=== PATIENT | male | born 1985 | race Caucasian/White ===

== ENCOUNTER 2024-06-14 13:06 | Emergency (ER) | payer OTHER, SELFPAY ==
[2024-06-14 13:13] VITALS: BP 121/88; PULSE 82; RESP 20; TEMP 36.9; O2SAT 98
--- NOTE | 2024-06-14 13:45 | DI.CT_ITS ---
Exam(s) CT ABDOMEN PELVIS W EXAM: CT ABDOMEN PELVIS W CLINICAL HISTORY: Rectal bleeding, lower abd pain. TECHNIQUE: Imaging Protocol: Axial computed tomography images with coronal and sagittal reformatted images were created and reviewed CONTRAST MATERIAL: Intravenous: Omnipaque 350 Contrast volume:100 ml Oral: no COMPARISON: No exams were available for comparison FINDINGS: ABDOMEN and PELVIS: Lung Bases: No acute findings. Liver: Normal density. No suspicious mass. Gallbladder and biliary tract: No radiodense calculus. No wall thickening or pericholecystic fluid. No biliary dilation. Pancreas: Normal density. No abnormal calcifications or inflammatory process. No evidence of mass. Spleen: Normal. Kidneys: Normal size and axis. Small area of decreased perfusion at the lower pole of the left kidne y could represent a small area of scarring versus focal pyelonephritis. No urothelial enhancement. The right kidney is unremarkable. No radiodense stones. No obstructive uropathy. No suspicious bharath s seen. Adrenal glands: No masses seen. Vasculature: Abdominal aorta non-dilated. No atherosclerotic changes are visible. Branch vessels ar e widely patent. Soft tissues: Tiny left fat containing umbilical hernia. No perirectal abscess is visible. Bladder: No gross wall thickening. No calculi.No focal mass. Bowel: No obstruction. No bowel wall thickening. Appendix normal. Mild sigmoid diverticulosis. No rmal quantity of stool. Peritoneal cavity: No ascites. No focal collection. No mesenteric inflammatory response. No free air . Bones: Unremarkable for age. Reproductive organs: Unremarkable. Lymph nodes: No pathologically enlarged lymph nodes. IMPRESSION:: No acute abnormality in the abdomen or pelvis. Mild sigmoid diverticulosis. Of focal area of decreased perfusion lower pole left kidney could could represent area of scarring versus foca l pyelonephritis. RADIATION DOSE DELIVERED: Total DLP DATA REPOSITORY: All CT scans at this facility are submitted to the National Radiology Data Registry (NRDR) Dose Index Registry (DIR) with the [employer] (ACR). RADIATION OPTIMIZATION: All CT scans at this facility use at least one of these dose optimization te chniques: automated exposure control; mA and/or kV adjustment per patient size (includes targeted exa ms where dose is matched to clinical indication); or iterative reconstruction.
--- NOTE | 2024-06-14 14:00 | ED.GENADUL_ITS ---
Discharge Plan Disposition Patient Disposition: Home Condition: Stable Discharge Details Clinical Impression: Rectal bleeding, Abdominal pain Primary Care Provider: None,None ED Provider: Akanksha Rodriguez Home Meds and New Rx's Prescriptions: No Action ibuprofen 800 mg tablet 800 mg PO Q8H PRN levofloxacin 500 mg tablet 500 mg PO DAILY losartan 50 mg tablet 50 mg PO DAILY simvastatin 20 mg tablet 20 mg PO DAILY Discharge Instructions Instructions: Abdominal Pain, Adult ED, Bloody Stools, Adult ED Additional Instructions: Please collect the stool sample as discussed and bring it into the lab at your convenience. Keep your appointment with urology as previously scheduled. No evidence of urinary tract infection you did have a small amount of blood in your urine. Labs are largely within normal limits your lipase was slightly elevated this could be due to the gallbladder. Referrals: Primary Care Provider [Outside] HPI General Mode of arrival: ambulatory . Date/Time Provider Initiated Documentation: 06/14/24 13:40 . Limitations to Documentation: no limitations . Information obtained by: patient, family, RN notes reviewed and old records reviewed . HPI Narrative: 39-year-old male with a history of prostatitis currently on antibiotics presents to the ER with chief complaint of lower abdominal pain with rectal bleeding which she noticed red blood in his stool this morning also noted blood with wiping. Denies any past medical history of hemorrhoids. He has been being worked up with his primary care for the prostatitis and is referred to urology he does have an appointment on July 06 at [facility] urology. He denies having any history of abdominal surgeries. He does have a history of hypertriglyceridemia, hypertension, prostatitis. He does endorse alcohol use 1- 2 times a week. Denies any consistent use of Tylenol or ibuprofen. He does not take any antacid just occasional Tums. Denies any vomiting however he does endorse nausea. He reports lower abdominal pain which radiation up into his left lower quadrant. Related Data Home Medications ?Medication ?Instructions ?Recorded ?Confirmed ibuprofen 800 mg tablet 800 mg PO Q8H PRN 06/08/24 levofloxacin 500 mg tablet 500 mg PO DAILY 06/08/24 losartan 50 mg tablet 50 mg PO DAILY 06/08/24 simvastatin 20 mg tablet 20 mg PO DAILY 06/08/24 Allergies Allergy/AdvReac Type Severity Reaction Status Date / Time No Known Allergies Allergy Verified 06/08/24 15:46 General Stated Complaint: Abd Prob LINDA: 3 Review of Systems All systems reviewed & are unremarkable except as noted in HPI and below Gastrointestinal Gastrointestinal: Reports abdominal pain, Reports hematochezia (Reports streaks of blood) and Reports nausea Course Vital Signs Vital signs: Vital Signs Temperature 36.9 C 06/14/24 13:13 Pulse 82 06/14/24 13:13 Respiratory Rate 20 06/14/24 13:13 Blood Pressure 121/88 06/14/24 13:13 Pulse Oximetry 98 06/14/24 13:13 Temperature 36.9 C 06/14/24 13:13 Temperature Source Temporal Artery Scan 06/14/24 13:13 Pulse 82 06/14/24 13:13 Respiratory Rate 20 06/14/24 13:13 Blood Pressure 121/88 06/14/24 13:13 Pulse Oximetry 98 06/14/24 13:13 Oxygen Delivery Method Room Air 06/14/24 13:13 Oxygen Flow Rate 0 06/14/24 13:13 Pain Level 5 06/14/24 13:37 Comment Lower Abd pain, burning on left side and some back pain. Has not taken anything for pain today. 06/14/24 13:13 Medical Decision Making 39-year-old male with a history of prostatitis currently on antibiotics presents to the ER with chief complaint of lower abdominal pain with rectal bleeding which she noticed red blood in his stool this morning also noted blood with wiping. Denies any past medical history of hemorrhoids. He has been being worked up with his primary care for the prostatitis and is referred to urology he does have an appointment on July 06 at [facility] urology. He denies having any history of abdominal surgeries. He does have a history of hypertriglyceridemia, hypertension, prostatitis. He does endorse alcohol use 1- 2 times a week. Denies any consistent use of Tylenol or ibuprofen. He does not take any antacid just occasional Tums. Denies any vomiting however he does endorse nausea. He reports lower abdominal pain which radiation up into his left lower quadrant. Will do some screening labs, give Pepcid 20 mg IV, 4mg IV Zofran, CT abdomen pelvis with contrast. Urinalysis. I did mention getting stool studies which would be beneficial, and also will consider discharging with a antacid. Differential diagnose includes amounted to colitis, hemorrhoids, adverse reaction from the recent antibiotics. Gastroenteritis. POCUS exam done at bedside FAST exam performed no free fluid noted does have somewhat dilated gallbladder, prostate somewhat enlarged. Negative fast. CBC shows no leukocytosis hemoglobin hematocrit within normal limits, CMP within normal limits, lipase is elevated at 122. Urinalysis shows small blood no leukocytes no nitrites 5-10 RBCs. At this time awaiting CT abdomen pelvis. Care is to be handed off to oncoming provider gibson TAMAYO pending CT abdomen pelvis. Recommend outpatient stool studies. Most likely disposition discharge at this time. Will Medical Records Medical records reviewed: Yes I reviewed the patient's medical records. Lab Data Lab results reviewed: Yes I reviewed the patient's lab results. Labs: Laboratory Tests Range/Units 06/14/24 06/14/24 13:28 14:25 WBC (4.4-10.8) 10^3/uL 6.50 RBC (4.36-5.78) 10^6/uL 5.38 Hgb (13.5-17.5) g/dL 15.8 Hct (40.0-50.0) % 46.5 MCV (80-95) fL 86 MCH (27.0-33.0) pg 29.4 MCHC (32.0-36.0) % 34.0 RDW (11.8-14.1) % 12.0 Plt Count (130-400) 10^3/uL 386 MPV (8.0-11.0) fL 9.1 Immature Gran % % 0.2 Neutrophils % % 62.0 Lymphocytes % % 26.6 Monocytes % % 8.6 Eosinophils % % 2.0 Basophils % % 0.6 Nucleated RBC % (0.0-0.3) % 0.0 Absolute Neutrophils (1.2-6.7) 10^3/uL 4.03 Absolute Lymphocytes (1.2-3.4) 10^3/uL 1.73 Absolute Monocytes (0.1-0.8) 10^3/uL 0.56 Absolute Eosinophils (0.0-0.7) 10^3/uL 0.13 Absolute Basophils (0.0-0.2) 10^3/uL 0.04 Sodium (136-145) mmol/L 140 Potassium (3.5-5.1) mmol/L 4.0 Chloride (98-107) mmol/L 102 Carbon Dioxide (21.0-32.0) mmol/L 31.9 Anion Gap (3-11) mmol/L 6.1 BUN (7-18) mg/dL 11 Creatinine (0.70-1.30) mg/dL 0.9 Est GFR (CKD-EPI 2020) (mL/min/1.73m2) 110.04 Glucose (74-106) mg/dL 94 Calcium (8.5-10.1) mg/dL 9.7 Magnesium (1.8-2.4) mg/dL 1.9 Total Bilirubin (0.2-1.0) mg/dL 0.86 AST (15-37) U/L 29 ALT (16-63) U/L 61 Alkaline Phosphatase (46-116) U/L 68 Total Protein (6.4-8.2) g/dL 8.2 Albumin (3.4-5.0) g/dL 4.6 Lipase (<78) U/L 122 H Urine Color (Yellow) Yellow Urine Clarity (Clear) Clear Urine pH (5-8) 6.0 Ur Specific [place] (1.005-1.025) 1.010 Urine Protein (Neg-Trace) mg/dL Negative Urine Ketones (Negative) mg/dL Negative Urine Blood (Negative) Small H Urine Nitrite (Negative) Negative Urine Bilirubin (Negative) Negative Urine Urobilinogen (Up to 0.2) mg/dL 0.2 Ur Leukocyte Esterase (Negative) Negative Urine RBC (0-2) HPF 5-10 H Urine WBC (0-5) HPF 0-2 Ur Epithelial Cells (Negative) HPF Rare Urine Crystals (Negative) HPF Negative Urine Bacteria (Negative) HPF Rare Urine Casts (Negative) LPF Negative Urine Mucus (Negative) Negative Ur Culture Indicated? No Urine Glucose (Negative) mg/dL Negative Quality:SDOH Health Related Social Needs: No Data to Display PFSH All Active Problems (Updated 06/14/24 @ 15:17 by Akanksha Rodriguez NP) Abdominal pain (Acute) Rectal bleeding (Acute) Medical History Low back pain Hypertriglyceridemia HTN (hypertension) ETOH abuse Enlarged prostate Abdominal pain Prostatitis Social History Smoking/Tobacco Use Status: Current, status unknown Tobacco Type: smokeless tobacco Smoking risk assessment performed?: Yes Alcohol Intake: current Alcohol Intake frequency: a few times a week Alcohol type: beer
[2024-06-14] MEDS: FAMOTIDINE 20 MG/50 ML BAG 200 MG IV (14:18)
[2024-06-14] MEDS: Ondansetron 4 MG/2 ML VIAL IVP (14:19)
[2024-06-14 14:20] LABS: Bilirubin Negative (Negative); Blood Small (Negative); Clarity Clear (Clear); Glucose Negative (Negative); Ketones Negative (Negative); Leukocyte Esterase Negative (Negative); Nitrite Negative (Negative); Urobilinogen 0.2 mg/dL (Up to 0.2)
[2024-06-14 14:28] LABS: Bacteria Rare HPF (Negative); Crystals Negative HPF (Negative); Epithelial Cells Rare HPF (Negative); Mucus Negative (Negative); WBC 0-2 HPF (0-5)
[2024-06-14 14:29] LABS: C & S Indicated? No; Casts Negative LPF (Negative)
[2024-06-14 14:31] LABS: Abs Immature Grans 0.01 10^3/uL (0.0-0.06); Absolute Basophil Count 0.04 10^3/uL (0.0-0.2); Absolute Eosinophil Count 0.13 10^3/uL (0.0-0.7); Absolute Lymphocyte Count 1.73 10^3/uL (1.2-3.4); Absolute Monocyte Count 0.56 10^3/uL (0.1-0.8); Absolute Neutrophil Count 4.03 10^3/uL (1.2-6.7); Basophils % 0.6 %; HCT 46.5 % (40.0-50.0); HGB 15.8 g/dL (13.5-17.5); Immature Grans % 0.2 %; Lymphocytes % 26.6 %; MCH 29.4 pg (27.0-33.0); MCV 86 fL (80-95); MPV 9.1 fL (8.0-11.0); Monocytes % 8.6 %; Platelet Count 386 10^3/uL (130-400); RBC 5.38 10^6/uL (4.36-5.78); RDW-SD 38.2 fL
[2024-06-14 14:48] LABS: ALT 61 U/L (16-63); AST 29 U/L (15-37); Albumin 4.6 g/dL (3.4-5.0); Alkaline Phosphatase 68 U/L (46-116); Anion Gap 6.1 mmol/L (3-11); BUN 11 mg/dL (7-18); Bilirubin, Total 0.86 mg/dL (0.2-1.0); CO2 31.9 mmol/L (21.0-32.0); CREATININE 0.9 mg/dL (0.70-1.30); Calcium 9.7 mg/dL (8.5-10.1); Chloride 102 mmol/L (98-107); Estimated GFR 110.04 (mL/min/1.73m2); Glucose 94 mg/dL (74-106); Lipase 122 U/L (<78); Magnesium 1.9 mg/dL (1.8-2.4); Sodium 140 mmol/L (136-145); Total Protein 8.2 g/dL (6.4-8.2)
[2024-06-14] MEDS: Normal Saline - Diluent 50 ML VIAL IJ (15:22)
[2024-06-14] MEDS: Omnipaque 350 MG/ML 100 ML BTL IJ (15:22)
--- NOTE | 2024-06-14 15:28 | ED.PROG_ITS ---
Date of service: 06/14/24 Time of Service: 15:28 Medical Decision Making This dictation utilizes [id number] dictation software and may contain unedited grammatical errors. Patient seen in signout from Tamela Gray NP, please see her complete note. Essentially, this 39-year-old male presents with some red streaking in his stool yesterday, reports mild lower abdominal pain, denies hemorrhoid history. His laboratory workup is benign shows no anemia, do not suspect significant bleed, has history of enlarged prostate and prostatitis recent negative STI testing. Currently, patient is awaiting CT scan, plan to discharge home with stool collection kit. Patients' medical history: Hypertension, low back pain, enlarged prostate, prostatitis. 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 Differential / pathologies of concern include colitis, gastroenteritis, hemorrhoids, not GI hemorrhage. Diagnostic studies of: -Pending study of CT abdomen/pelvis with contrast. -Reviewed labs, CBC shows no anemia, no actionable abnormality on CMP, mild elevation of the lipase is not to the level of acute pancreatitis -UA shows small amounts of blood -CT shows no acute abnormality in the abdomen or pelvis, does show focal area of decreased perfusion in the left pole of the kidney but has no CVA tenderness to percussion and no evidence of UTI, no fever -Sending home with stool collection kit and referring for colonoscopy Interventions of: -Patient has received famotidine. ED Course/Assessment/Plan: 39-year-old male has ongoing lower abdominal pain with some red streaking in his stool of bright red blood, has no hemorrhoid history, I do recommend he receive stool studies on an outpatient basis and referred him to the surgery service for colonoscopy as he does have some family history of colon cancer-uncle in his 50s of colon cancer, CT shows no acute abnormality I do not suspect the left renal finding to be pyelonephritis, shows no evidence of IBD, he was sent home with stool collection kit with strict return criteria for any further symptoms of significant blood loss, intractable rectal bleeding, severe increase in abdominal pain especially fever. Findings not consistent with colitis, inflammatory bowel disease, GI hemorrhage, UTI or pyelonephritis. Disposition of Rectal Bleeding. Patient verbalized understanding of the plan and return to ED criteria and engaged in shared decision making. Medical Records Medical records reviewed: Yes I reviewed the patient's medical records. Imaging Data Radiologic Study: Attestation: I personally reviewed and interpreted this imaging study as follows: Imaging: CT Scan Radiologist's impression: EXAM: CT ABDOMEN PELVIS W CLINICAL HISTORY: Rectal bleeding, lower abd pain. TECHNIQUE: Imaging Protocol: Axial computed tomography images with coronal and sagittal reformatted images were created and reviewed CONTRAST MATERIAL: Intravenous: Omnipaque 350 Contrast volume:100 ml Oral: no COMPARISON: No exams were available for comparison FINDINGS: ABDOMEN and PELVIS: Lung Bases: No acute findings. Liver: Normal density. No suspicious mass. Gallbladder and biliary tract: No radiodense calculus. No wall thickening or pericholecystic fluid. No biliary dilation. Pancreas: Normal density. No abnormal calcifications or inflammatory process. No evidence of mass. Spleen: Normal. Kidneys: Normal size and axis. Small area of decreased perfusion at the lower pole of the left kidney could represent a small area of scarring versus focal pyelonephritis. No urothelial enhancement. The right kidney is unremarkable. No radiodense stones. No obstructive uropathy. No suspicious masses seen. Adrenal glands: No masses seen. Vasculature: Abdominal aorta non-dilated. No atherosclerotic changes are visible. Branch vessels are widely patent. Soft tissues: Tiny left fat containing umbilical hernia. No perirectal abscess is visible. Bladder: No gross wall thickening. No calculi.No focal mass. Bowel: No obstruction. No bowel wall thickening. Appendix normal. Mild sigmoid diverticulosis. Normal quantity of stool. Peritoneal cavity: No ascites. No focal collection. No mesenteric inflammatory response. No free air. Bones: Unremarkable for age. Reproductive organs: Unremarkable. Lymph nodes: No pathologically enlarged lymph nodes. IMPRESSION:: No acute abnormality in the abdomen or pelvis. Mild sigmoid diverticulosis. Of focal area of decreased perfusion lower pole left kidney could could represent area of scarring versus focal pyelonephritis. Lab Data Lab results reviewed: Yes I reviewed the patient's lab results. Labs: Laboratory Tests Range/Units 06/14/24 06/14/24 13:28 14:25 WBC (4.4-10.8) 10^3/uL 6.50 RBC (4.36-5.78) 10^6/uL 5.38 Hgb (13.5-17.5) g/dL 15.8 Hct (40.0-50.0) % 46.5 MCV (80-95) fL 86 MCH (27.0-33.0) pg 29.4 MCHC (32.0-36.0) % 34.0 RDW (11.8-14.1) % 12.0 Plt Count (130-400) 10^3/uL 386 MPV (8.0-11.0) fL 9.1 Immature Gran % % 0.2 Neutrophils % % 62.0 Lymphocytes % % 26.6 Monocytes % % 8.6 Eosinophils % % 2.0 Basophils % % 0.6 Nucleated RBC % (0.0-0.3) % 0.0 Absolute Neutrophils (1.2-6.7) 10^3/uL 4.03 Absolute Lymphocytes (1.2-3.4) 10^3/uL 1.73 Absolute Monocytes (0.1-0.8) 10^3/uL 0.56 Absolute Eosinophils (0.0-0.7) 10^3/uL 0.13 Absolute Basophils (0.0-0.2) 10^3/uL 0.04 Sodium (136-145) mmol/L 140 Potassium (3.5-5.1) mmol/L 4.0 Chloride (98-107) mmol/L 102 Carbon Dioxide (21.0-32.0) mmol/L 31.9 Anion Gap (3-11) mmol/L 6.1 BUN (7-18) mg/dL 11 Creatinine (0.70-1.30) mg/dL 0.9 Est GFR (CKD-EPI 2020) (mL/min/1.73m2) 110.04 Glucose (74-106) mg/dL 94 Calcium (8.5-10.1) mg/dL 9.7 Magnesium (1.8-2.4) mg/dL 1.9 Total Bilirubin (0.2-1.0) mg/dL 0.86 AST (15-37) U/L 29 ALT (16-63) U/L 61 Alkaline Phosphatase (46-116) U/L 68 Total Protein (6.4-8.2) g/dL 8.2 Albumin (3.4-5.0) g/dL 4.6 Lipase (<78) U/L 122 H Urine Color (Yellow) Yellow Urine Clarity (Clear) Clear Urine pH (5-8) 6.0 Ur Specific [place] (1.005-1.025) 1.010 Urine Protein (Neg-Trace) mg/dL Negative Urine Ketones (Negative) mg/dL Negative Urine Blood (Negative) Small H Urine Nitrite (Negative) Negative Urine Bilirubin (Negative) Negative Urine Urobilinogen (Up to 0.2) mg/dL 0.2 Ur Leukocyte Esterase (Negative) Negative Urine RBC (0-2) HPF 5-10 H Urine WBC (0-5) HPF 0-2 Ur Epithelial Cells (Negative) HPF Rare Urine Crystals (Negative) HPF Negative Urine Bacteria (Negative) HPF Rare Urine Casts (Negative) LPF Negative Urine Mucus (Negative) Negative Ur Culture Indicated? No Urine Glucose (Negative) mg/dL Negative Quality:SDOH Health Related Social Needs: No Data to Display Discharge Plan Disposition Patient Disposition: Home Condition: Stable Discharge Details Clinical Impression: Rectal bleeding, Abdominal pain Primary Care Provider: None,None ED Provider: Kiran Gaitan Home Meds and New Rx's Prescriptions: No Action ibuprofen 800 mg tablet 800 mg PO Q8H PRN levofloxacin 500 mg tablet 500 mg PO DAILY losartan 50 mg tablet 50 mg PO DAILY simvastatin 20 mg tablet 20 mg PO DAILY Discharge Instructions Instructions: Abdominal Pain, Adult ED, Bloody Stools, Adult ED Additional Instructions: Please collect the stool sample as discussed and bring it into the lab at your convenience. Keep your appointment with urology as previously scheduled. No evidence of urinary tract infection you did have a small amount of blood in your urine. Labs are largely within normal limits your lipase was slightly elevated this could be due to the gallbladder. I am placing a referral to our surgery service here at the hospital to obtain a colonoscopy, please return to the ER for any severe increase in abdominal pain especially with signs of significant blood loss like dizziness, paleness, weakness. Referrals: Primary Care Provider [Outside]
[2024-06-14 15:52] VITALS: BP 157/88; PULSE 75; RESP 19; TEMP 36.7; O2SAT 100
[2024-06-14 15:58] LABS: Prothrombin Time 10.4 sec (9.1-11.1)
--- NOTE | 2024-06-14 18:01 | NUR.NOTE ---
ED Referral sent to Surgical for colonoscopy. Nursing Note:
== END 2024-06-14 16:10 | disposition home or self-care (01) ==
PROVIDERS: Registered Nurse Emergency; Emergency Provider Physician Assistant
DX: R10.30 Lower abdominal pain, unspecified (principal); K62.5 Hemorrhage of anus and rectum; E78.1 Pure hyperglyceridemia; N41.1 Chronic prostatitis; I10 Essential (primary) hypertension; F17.290 Nicotine dependence, other tobacco product, uncomplicated
CPT/HCPCS: 00123; 80053; 83690; 96374; 96375; 99285; 74177; 81003; 81015; 83735; 85025; 85610; J2405; J3490

== ENCOUNTER 2025-01-19 00:41 | Outpatient (CLI) | payer OTHER, SELFPAY ==
--- NOTE | 2025-01-19 | DI.MRI_ITS ---
Exam(s) MR LUMBAR SPINE WO EXAM: MR LUMBAR SPINE WO CLINICAL HISTORY: RECURRENT LOW BACK PAIN,M54.50,SCIATICA,RT SIDE,M54.31. TECHNIQUE: Multiplanar multisequence MRI of the Lumbar spine was performed. COMPARISON: CT CT ABDOMEN PELVIS W from 06/14/2024 FINDINGS: Conus medullaris is at normal level. There is no evidence of conus mass nor subjacent clumping of intrathecal nerve roots to suggest arachnoiditis. The distal thecal sac appears unremarkable.There is no evidence of Tarlov intrasacral cysts nor other significant findings within the sacral canal Bones:There are no fractures nor ominous osseous lesions in the lumbar vertebral bodies and visualized sacrum. With respect to the individual levels... T12-L1: Unremarkable L1-2: Normal disc height and signal. No disc herniation nor central canal stenosis.No foraminal stenosis L2-3: Normal disc height. No disc herniation nor central canal stenosis.No foraminal stenosis.No facet arthropathy. L3-4: Normal disc height. No disc herniation or central canal stenosis.No foraminal stenosis.No facet arthropathy. L4-5: Normal disc height and signal. Posteriorly there is a 7 mm length peripheral radial tear in the left side of the annulus at the level the exiting left neural foramen. There does not appear to be a disc herniation at this level. There is relatively symmetrical mild annular bulging posteriorly at this disc space. There is a central subligamentous very mild protrusion which contacts the thecal sac but is not associated with central spinal canal stenosis. The mild annular bulging extends into the floor of the exiting neural foramina bilaterally but there is no significant foraminal stenosis evident. There is also no significant facet arthropathy at this level. L5-S1: This level exhibits mild relatively uniform narrowing of the disc space. There are Modic type 2 sub endplate fatty marrow changes on the left side of the disc space and there are Modic type 1 sub endplate edema marrow changes on the right side of the disc space, specifically within the inferior aspect of the right-side of the L5 vertebral body. There is broad annular bulging at this level with a superimposed small left paracentral disc protrusion better seen on the sagittal than on the axial images. There is no central canal stenosis. No facet arthropathy evident at this level. There is mild foraminal stenosis on the left side and minimal the knee significant foraminal stenosis on the right side. OTHER: Osseous sacrum in paraspinal tissues appear unremarkable. Incidentally noted is a focally dilated right nerve root sheath in the right S1-S2 exiting neural foramen. Probably asymptomatic. IMPRESSION: 1. There is a radial tear in the lateral left annulus at L4-5 level but without a disc protrusion at this level. Other mild findings at L4-5 as described above. 2. Findings at L5-S1 level as described above. 3. There is no prominent central canal stenosis nor prominent foraminal stenosis. There is also no significant facet arthropathy in the lumbosacral spinal column. DATA REPOSITORY:
== END 2025-01-19 01:01 ==
LOC: DI 00:41
PROVIDERS: PCP Nurse Practitioner; Visit Provider Nurse Practitioner
DX: M51.A4 Intervertebral annulus fibrosus defect, small, lumbosacral region (principal)
CPT/HCPCS: 72148

== ENCOUNTER 2025-02-16 03:46 | Outpatient (CLI) | payer OTHER, SELFPAY ==
--- NOTE | 2025-02-16 08:00 | DI.RAD_ITS ---
Exam(s) XR KNEE LT 3V AP,LAT,FIORELLA EXAM: XR KNEE LT 3V AP,LAT,FIORELLA CLINICAL HISTORY: LEFT KNEE PAIN M25.562. TECHNIQUE: 2D digital imaging was performed. Three views. COMPARISON: No exams were available for comparison FINDINGS: BONES: No acute fracture is present. No bony destructive lesion is seen. JOINTS: The knee is normally aligned. The joint spaces are maintained. No significant degenerative changes. No joint effusion is seen. SOFT TISSUE: Normal. IMPRESSION: Normal radiographs of the left knee. DATA REPOSITORY: RADIATION DOSE DELIVERED:
== END 2025-02-16 04:06 ==
LOC: DI 03:46
PROVIDERS: PCP Nurse Practitioner; Visit Provider Nurse Practitioner
DX: M25.562 Pain in left knee (principal)
CPT/HCPCS: 73562